=== PATIENT | male | born 1970 | race Caucasian/White ===

== ENCOUNTER 2020-11-14 09:24 | Outpatient (RCR) | payer BC, OTHER | END 2020-11-20 | disposition home or self-care (01) | PROVIDERS: ATTEND Physical Therapist | DX: M25.562 Pain in left knee (principal); M25.561 Pain in right knee ==

== ENCOUNTER 2020-12-29 15:24 | Outpatient (RCR) | payer OTHER | END 2020-12-29 17:00 | disposition home or self-care (01) | DX: M25.562 Pain in left knee (principal); M25.561 Pain in right knee ==

== ENCOUNTER 2021-04-24 10:33 | Outpatient (CLI) | payer OTHER ==
[~2021-04-24] VITALS: Ht 203.2 cm; Wt 145.1 kg
[2021-04-24 10:29] VITALS: BP 149/92
[2021-04-24] MEDS ORDERED: EPINEPHrine INJECTION 1 MG/ML AMP IM PRN (11:00)
[2021-04-24] MEDS ORDERED: ONDANSETRON 4 MG/2 ML (SDV) Z0FRAN IV PRN (11:00)
[2021-04-24] MEDS ORDERED: CASIRIVIMAB/IMDEVIMAB 1,200 MG in NS (IVPB) 250 ML IV ONE (11:00)
[2021-04-24] MEDS ORDERED: ACETAMINOPHEN 500 MG TAB (TYLENOL) PO PRN (11:00)
[2021-04-24] MEDS ORDERED: diphenhydrAMINE 50 MG/ML INJ (BENADRYL) IV PRN (11:00)
[2021-04-24 12:09] VITALS: BP 139/88
== END 2021-04-24 12:30 | disposition home or self-care (01) ==
LOC: INFUSION 10:33
PROVIDERS: ATTEND Family Medicine
DX: U07.1 COVID-19 (principal)

== ENCOUNTER 2022-05-03 08:22 | Outpatient (CLI) | payer OTHER ==
[~2022-05-03] VITALS: Ht 201 cm; Wt 159.0 kg
[2022-05-04] MEDS ORDERED: MELO5CAP3 PO (10:16)
[2022-05-04] MEDS ORDERED: AMLO1CAP PO (10:16)
== END 2022-05-04 10:39 | disposition home or self-care (01) ==
LOC: PREOP 08:22
PROVIDERS: ATTEND Internal Medicine
DX: Z01.818 Encounter for other preprocedural examination (principal); Z12.11 Encounter for screening for malignant neoplasm of colon

== ENCOUNTER 2022-05-07 09:11 | Day surgery (SDC) | payer OTHER ==
--- NOTE | 2022-05-04 07:22 | HISTORY AND PHYSICAL ---
DATE OF SERVICE: 05/07/2022 COLONOSCOPY HISTORY AND PHYSICAL DATE OF ADMISSION: HISTORY OF PRESENT ILLNESS: The patient is a 51-year-old white male seen for followup of hypertension and hypertriglyceridemia. He is being set up for screening colonoscopy. He is deemed to be of average risk as he is not aware of any family history for colon cancer. He denies bright red blood per rectum, abdominal pain, change in bowel habit or change in weight. He reports that he has been feeling well. PAST MEDICAL HISTORY: Significant for hypertension, hyperlipidemia, predominantly triglyceride elevation in the 250 to 300 range without known vascular disease. FAMILY HISTORY: He reports no family history for colon cancer. PHYSICAL EXAMINATION: GENERAL: Reveals a pleasant, overweight white male well. VITAL SIGNS: He does weigh 340 pounds. He is also 6 feet 8 inches tall. Initial blood pressure 148/86 and repeated 140/78. HEENT: Unremarkable. Mallampati 2 oropharyngeal configuration. CHEST: Clear to auscultation. CARDIOVASCULAR: Reveals a regular rate and rhythm without murmur, S3 or S4. ABDOMEN: Soft, supple without mass, organomegaly or tenderness. RECTAL: Deferred at time of colonoscopy. EXTREMITIES: Reveal no cyanosis, clubbing or edema. ASSESSMENT AND PLAN: 1. Hypertension, control not ideal. Continue current medications for now and we will address Wegovy, which we had gotten the patient covered for earlier this year, but he has not been taking. 2. Hyperlipidemia, triglyceride level was 307 with an HDL of 49 and total cholesterol of 207 with an LDL of 97. The remainder of his chemistry panel was normal. 3. Prep instructions for screening colonoscopy were given with the Sutab dose and questions were answered and we will ask him about Wegovy at the time of his consultation. Job ID: [id number] DocumentID: [id number] Dictated Date: 04/28/2022 17:20:47 Gold Layer Date: 04/28/2022 17:51:00 Dictated By: GALO SANTOS MD
[~2022-05-07] VITALS: Ht 201 cm; Wt 159.0 kg
[~2022-05-07 09:11] MED LIST: AMLO1CAP PO; MELO5CAP3 PO
[2022-05-07] MEDS ORDERED: LACTATED RINGERS 1,000 ML IV STA (09:12)
[2022-05-07 09:30] VITALS: BP 147/93
--- NOTE | 2022-05-07 09:36 | Pre-Op Note & Conscious Sedat ---
Pre-Operative Progress Note Date H&P Reviewed: May 07, 2022 Time H&P Reviewed: 09:35 History & Physical: H&P Reviewed, Patient Examed, No changes noted Pre-Op Diagnosis: screening Conscious Sedation Pre-Proced ASA Score 2 For ASA 3 and 4: Consider anesthesia and medical clearance. Also, for patients with a history of failed moderate sedation consider anesthesia. Airway Lungs Heart ASA score ASA 1: a normal healthy patient ASA 2: a patient with a mild systemic disease (mid diabetes, controlled hypertension, obesity ASA 3: a patient with a severe systemic disease that limits activity (angina, COPD, prior Myocardial infarction) ASA 4: a patient with an incapacitating disease that is a constant threat to life (CHF, renal failure) ASA 5: a moribund patient not expected to survive 24 hrs. (ruptured aneurysm) ASA 6: a declared brain- patient whose organs are being harvested. For emergent operations, add the letter E after the classification Mallampati Classification Grade 2 Sedation Plan Analgesia, Amnesia, Plan communicated to team members, Discussed options with patient/fam, Discussed risks with patient/fam The patient is an appropriate candidate to undergo the planned procedure, sedation, and anesthesia. The patient immediately re-assessed prior to indication. GALO SANTOS MD May 07, 2022 09:36
[2022-05-07] MEDS ORDERED: PROPOFOL INJECTION 50 ML IV ONE ×2 (10:16→10:32)
[2022-05-07 10:45] VITALS: BP 118/80
--- NOTE | 2022-05-07 10:45 | Anesthesia-General Post-Op ---
MAC Patient Condition Mental Status/LOC: Same as Preop Cardiovascular: Satisfactory Nausea/Vomiting: Absent Respiratory: Satisfactory Pain: Controlled Complications: Absent Post Op Complications Complications None Follow Up Care/Instructions Patient Instructions None needed. Anesthesiology Discharge Order Discharge Order Patient is doing well, no complaints, stable vital signs, no apparent adverse anesthesia problems. No complications reported per nursing. TRINA BELLO CRNA May 07, 2022 10:45
--- NOTE | 2022-05-07 10:47 | Progress Note-Post Operative ---
Post-Procedure Note Physician (s)/Forepart Reducer (s) Physician GALO SANTOS MD Pre-Procedure Diagnosis Pre-Procedure Diagnosis: screening Post-Procedure Diagnosis Post-operative diagnosis: Prior to undergoing colonoscopy digital rectal evaluation was performed. Prostate is unremarkable on digital inspection. There are no abnormalities noted on digital inspection anal canal or distal rectal vault. The colonoscope was then inserted into the rectum and under direct visualization advanced to the cecum. The cecum was identified by identification of the appendiceal orifice and the ileocecal valve. Quality the prep was good. A careful inspection was made on withdrawal of the Colonoscope. Findings: There was no evidence for internal or external hemorrhoids. The rectum was unremarkable. Several medium sized diverticulum were noted confined to the sigmoid colon without evidence for diverticulitis. No other sigmoid colonic abnormalities were appreciated. The descending colon splenic flexure transverse colon hepatic flexure ascending colon and cecum were unremarkable. Assessment 1. Mild to moderate diverticular disease confined to the sigmoid colon was present without mass or diverticulitis. This was an otherwise normal colonoscopy to the cecum. Prostate was unremarkable to digital inspection. We will advocate consideration for repeat screening colonoscopy in 10 years. GALO SANTOS MD May 07, 2022 10:47
[2022-05-07 10:50] VITALS: BP 114/72
[2022-05-07 11:15] VITALS: BP 123/79
[2022-05-07 11:20] VITALS: BP 123/79
== END 2022-05-07 11:20 | disposition home or self-care (01) ==
LOC: ENDO 09:11
PROVIDERS: ATTEND Internal Medicine
DX: Z12.11 Encounter for screening for malignant neoplasm of colon (principal); K57.30 Diverticulosis of large intestine without perforation or abscess without bleeding; E78.5 Hyperlipidemia, unspecified; I10 Essential (primary) hypertension; Z79.899 Other long term (current) drug therapy